=== PATIENT | male | born 1995 | race Caucasian/White ===

== ENCOUNTER 2019-05-21 13:14 | Emergency (ER) | payer OTHER ==
[~2019-05-21] VITALS: Ht 177.8 cm; Wt 64.0 kg
[2019-05-21 13:20] VITALS: BP 138/69
--- NOTE | 2019-05-21 13:25 | NUR ---
PT APPEAR LETHARGIC, AMBULATES TO BED 7
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
[2019-05-21] MEDS: traMADol 50 MG TAB PO ONE (14:20)
[2019-05-21] MEDS: hydrOXYzine HCL 25 MG TAB PO ONE (14:20)
[2019-05-21] MEDS: IBUPROFEN 800 MG TAB PO ONE (14:20)
[2019-05-21 16:25] VITALS: BP 125/57
--- NOTE | 2019-05-21 16:25 | NUR ---
Patient discharged with v/s stable. Written and verbal after care instructions given and explained. Patient alert, oriented and verbalized understanding of instructions. Ambulatory with steady gait. All questions addressed prior to discharge. ID band removed. Patient advised to follow up with PMD. Rx of ANAPROX given. Patient educated on indication of medication including possible reaction and side effects. Opportunity to ask questions provided and answered.
== END 2019-05-21 16:25 | disposition home or self-care (01) ==
LOC: MED 13:14
DX: S13.9XXA Sprain of joints and ligaments of unspecified parts of neck, initial encounter (principal); R51 Headache; V89.2XXA Person injured in unspecified motor-vehicle accident, traffic, initial encounter; Y93.89 Activity, other specified; Y92.89 Other specified places as the place of occurrence of the external cause; Y99.8 Other external cause status
CPT/HCPCS: 70450; 71046; 72040; 99284

== ENCOUNTER 2021-06-24 08:47 | Emergency (ER) | payer MEDICAID ==
[~2021-06-24] VITALS: Ht 175.3 cm; Wt 79.9 kg
[2021-06-24 09:15] VITALS: BP 142/65
[2021-06-24] MEDS: METOCLOPRAMIDE 10 MG/2 ML INJ VIAL IVP ONE (10:24)
[2021-06-24] MEDS: NACL 0.9% 1,000 ML IV ONE (10:24)
[2021-06-24 11:14] LABS: ANION GAP 8.1 (8-16); CARBON DIOXIDE 30.6 mmol/L (21-32); CREATININE 0.7 mg/dL (0.6-1.3); POTASSIUM 4.7 mmol/L (3.5-5.1)
[2021-06-24 11:21] LABS: ALBUMIN 3.3 g/dL (3.4-5.0); BILIRUBIN,DIRECT 0.1 mg/dL (0.0-0.3); TOTAL BILIRUBIN 0.3 mg/dL (0.0-1.0)
[2021-06-24 11:25] LABS: BASOPHILS % (AUTO) 0.6 % (0.0-2.0); EOSINOPHILS % (AUTO) 1.2 % (0.0-4.0); HEMATOCRIT 39.3 % (36-52); HEMOGLOBIN 13.6 g/dL (12.0-18.0); LYMPHOCYTES # (AUTO) 1.1 K/uL (2.0-11.5); LYMPHOCYTES % (AUTO) 33.9 % (20.5-51.1); MEAN CORPUSCULAR HEMOGLOBIN 31 pg (27-31); MEAN CORPUSCULAR HGB CONC 35 g/dL (33-37); MEAN CORPUSCULAR VOLUME 90.8 fL (80-94); MONOCYTES # (AUTO) 0.3 K/uL (0.8-1.0); MONOCYTES % (AUTO) 10.3 % (1.7-9.3); NEUTROPHILS # (AUTO) 1.8 K/uL (1.8-7.7); PLATELET COUNT (AUTO) 164 K/uL (140-450); RED BLOOD CELL COUNT(AUTO) 4.33 MIL/uL (4.20-6.10); RED CELL DISTRIBUTION WIDTH 12.5 % (11.6-13.7); WHITE BLOOD COUNT (AUTO) 3.3 K/uL (4.8-10.8)
[2021-06-24 12:14] VITALS: BP 142/65
== END 2021-06-24 12:14 | disposition home or self-care (01) ==
LOC: MED 08:47
DX: K92.1 Melena (principal); R10.9 Unspecified abdominal pain
CPT/HCPCS: 36415; 80048; 80076; 81002; 83690; 85025; 96361; 96374; 99283; J2765; J7030